=== PATIENT | female | born 1940 | race Caucasian/White ===

== ENCOUNTER 2020-06-04 10:57 | Inpatient (IN) ==
[2020-06-04] MEDS ORDERED: ALBUTEROL/IPRATROPIUM 3 ML NEB RESP TX STA (11:25)
[2020-06-04] MEDS ORDERED: FUROSEMIDE 100 MG/10 ML VIAL IV STA (11:25)
[2020-06-04 11:34] LABS: Basophils % 0.3 % (0.0-0.8); Eosinophils # 0.1 10*3/uL (0.0-0.87); Eosinophils % 0.4 % (0.00-10.9); Immature Granulocytes % 0.7 %; Immature Granulocytes Absolute 0.09 #; Lymphocytes % 7.6 % (21.3-54.2); Mean Corpuscular HGB Conc 30.2 GM/DL (32-36); Mean Corpuscular Volume 94.9 FL (87-102); Mean Platelet Volume 9.1 FL (9.6-12.0); Platelet Count 239 T/CUMM (130-400); Red Blood Count 4.53 MC/CUMM (3.8-5.5); Red Cell Distribution Width 13.2 % (9.3-17.3); White Blood Count 12.8 T/CUMM (4-12)
[2020-06-04 12:04] LABS: Bacteria,Urine Occasional /HPF (Few); Bilirubin,Urine Negative (Negative); Blood, Urine Small mg/dL (Negative); Glucose,Urine (UA) Negative (Negative); Hyaline Casts,Urine 15 /LPF (0-3); Ketones,Urine Negative (Negative); Mucus,Urine Occasional /LPF (Occasional); Nitrite,Urine Negative (Negative); Protein,Urine 100 MG/DL; RBC,Urine 2 /HPF (0-4); Urine Appearance CLEAR (Clear); Urine Color Yellow (Yellow); Urine Specific Gravity 1.012 (1.001-1.035); Urine Urobilinogen < 2.0 EU/DL (0.2-1.0); WBC,Urine <1 /HPF (0-6)
[2020-06-04 12:38] LABS: Albumin 3.3 G/DL (3.4-5.0); Bilirubin,Total 0.4 MG/DL (0.2-1.0); Calcium 9.2 MG/DL (8.5-10.1); Osmolality,Calculated 281.1 MOS/KG (273-304); Potassium 4.2 MMOL/L (3.5-5.1); Total Protein 7.3 G/DL (6.4-8.2)
[2020-06-04] MEDS ORDERED: AZITHROMYCIN INJ 500 MG in SODIUM CHLORIDE 0.9% 250 ML IV STA (14:47)
[2020-06-04] MEDS ORDERED: cefTRIAXone 1,000 MG in SODIUM CHLORIDE 0.9% 100 ML IV STA (14:47)
[2020-06-04] MEDS ORDERED: DOCUSATE SODIUM 100 MG CAPSULE PO PRN (16:22)
[2020-06-04] MEDS ORDERED: GLUCAGON 1 MG VIAL IM PRN ×2 (16:22)
[2020-06-04] MEDS ORDERED: hydrALAZINE 20 MG/1 ML VIAL IV PRN (16:22)
[2020-06-04] MEDS ORDERED: ACETAMINOPHEN 325 MG TABLET PO PRN (16:22)
[2020-06-04] MEDS ORDERED: DEXTROSE 50% 25 GM/50 ML VIAL IV PRN ×2 (16:22)
[2020-06-04] MEDS ORDERED: ONDANSETRON 4 MG/2 ML VIAL IV PRN (16:22)
[2020-06-04] MEDS ORDERED: guaiFENesin 200 MG/10 ML UDCUP PO PRN (16:50)
[2020-06-04] MEDS ORDERED: SODIUM CHLORIDE 0.9% 1,000 ML IV STA (17:36)
[2020-06-04] MEDS ORDERED: POLYVINYL ALCOHOL 1.4% OPH SOLN 15 ML BOTTLE BOTH EYES PRN (18:00)
[2020-06-04] MEDS: INSULIN LISPRO 100 UNIT/ML SUBCUT SCH ×2 (18:39→21:24)
[2020-06-04] MEDS: SODIUM CHLORIDE 0.9% 1,000 ML IV SCH (19:23)
[2020-06-04] MEDS: PIPERACILLIN/TAZOBACTAM 3,375 MG in SODIUM CHLORIDE 0.9% 100 ML IV SCH (19:24)
[2020-06-04] MEDS: ENOXAPARIN 150 MG/ML SYRINGE SUBCUT SCH (19:24)
[2020-06-04] MEDS: ALBUTEROL/IPRATROPIUM 3 ML NEB RESP TX SCH (19:40)
[2020-06-04] MEDS ORDERED: hydrOXYzine HCL 25 MG TABLET PO SCH (21:00)
[2020-06-04] MEDS: carvediloL 3.125 MG TABLET PO SCH (21:20)
[2020-06-04] MEDS: rOPINIRole 0.25 MG TABLET PO SCH (21:20)
[2020-06-04] MEDS: PREGABALIN 50 MG CAPSULE PO SCH (21:20)
[2020-06-04] MEDS: methylPREDNISolone SOD SUC 40 MG/1 ML VIAL IV SCH (21:21)
[2020-06-04] MEDS: FLUTICASONE/SALMETEROL 100-50 DISKUS 14 DOSE INH SCH (21:27)
[2020-06-04] MEDS: MELATONIN 3 MG TABLET PO SCH (21:27)
[2020-06-05] MEDS: VANCOMYCIN INJ 2,000 MG in SODIUM CHLORIDE 0.9% 500 ML IV SCH (01:11)
[2020-06-05] MEDS: ALBUTEROL/IPRATROPIUM 3 ML NEB RESP TX SCH ×4 (02:10→19:40)
[2020-06-05] MEDS: PIPERACILLIN/TAZOBACTAM 3,375 MG in SODIUM CHLORIDE 0.9% 100 ML IV SCH ×3 (05:26→20:11)
[2020-06-05] MEDS: ENOXAPARIN 150 MG/ML SYRINGE SUBCUT SCH ×2 (05:26→17:13)
[2020-06-05 06:40] LABS: Basophils % 0.2 % (0.0-0.8); Hematocrit 40.3 VOL% (35.7-47.0); Hemoglobin 12.3 GM/DL (12.0-16.0); Immature Granulocytes % 0.6 %; Lymphocytes # 1.1 10*3/uL (1.4-4.0); Lymphocytes % 6.8 % (21.3-54.2); Mean Corpuscular HGB Conc 30.5 GM/DL (32-36); Mean Corpuscular Volume 93.1 FL (87-102); Mean Platelet Volume 9.4 FL (9.6-12.0); Neutrophils % 89.4 % (38.7-73.9); Platelet Count 203 T/CUMM (130-400); Red Blood Count 4.33 MC/CUMM (3.8-5.5); Red Cell Distribution Width 13.5 % (9.3-17.3); White Blood Count 16.1 T/CUMM (4-12)
[2020-06-05 06:53] LABS: Calcium 9.3 MG/DL (8.5-10.1); Osmolality,Calculated 289.5 MOS/KG (273-304); Potassium 4.1 MMOL/L (3.5-5.1)
[2020-06-05 07:06] LABS: Albumin 2.9 G/DL (3.4-5.0); Bilirubin,Total 0.8 MG/DL (0.2-1.0); Calcium 9.1 MG/DL (8.5-10.1); Osmolality,Calculated 289.5 MOS/KG (273-304); Risk Ratio 3.11; Thyroid Stimulating Hormone 0.463 uIU/ml (0.358-3.74); Total Protein 7.3 G/DL (6.4-8.2); VLDL CHOLESTEROL 14.8 MG/DL
[2020-06-05] MEDS ORDERED: FUROSEMIDE 40 MG TABLET PO SCH (09:00)
[2020-06-05] MEDS ORDERED: PANTOPRAZOLE 40 MG TABLET PO SCH (09:00)
[2020-06-05] MEDS: FLUTICASONE/SALMETEROL 100-50 DISKUS 14 DOSE INH SCH ×2 (09:31→20:11)
[2020-06-05] MEDS: methylPREDNISolone SOD SUC 40 MG/1 ML VIAL IV SCH ×2 (09:33→20:11)
[2020-06-05] MEDS: LACTULOSE 20 GM/30 ML UDCUP PO SCH (09:34)
[2020-06-05] MEDS: POTASSIUM CHLORIDE 20 MEQ/15 ML UDCUP PO SCH (09:34)
[2020-06-05] MEDS: EZETIMIBE 10 MG TABLET PO SCH (09:35)
[2020-06-05] MEDS: ASPIRIN EC 325 MG TABLET PO SCH (09:35)
[2020-06-05] MEDS: DULoxetine 30 MG CAPSULE PO SCH (09:35)
[2020-06-05] MEDS: PREGABALIN 50 MG CAPSULE PO SCH ×3 (09:35→22:04)
[2020-06-05] MEDS: PANTOPRAZOLE 40 MG TABLET PO SCH (09:35)
[2020-06-05] MEDS: lisinopriL 10 MG TABLET PO SCH (09:35)
[2020-06-05] MEDS: carvediloL 3.125 MG TABLET PO SCH ×2 (09:35→22:04)
[2020-06-05] MEDS: INSULIN LISPRO 100 UNIT/ML SUBCUT SCH ×4 (09:37→22:04)
[2020-06-05 10:59] LABS: ABG Base Excess 11.3 MMOL/L (-2.5-2.5); ABG HCO3 38.3 MMOL/L (20-26); ABG Oxygen Saturation 95.6 % (95-100); ABG PCO2 61.9 MM HG (35-48); ABG PH 7.409 (7.35-7.45); ABG PO2 77.4 MM HG (80-95); ABG TCO2 40.2 MMOL/L (23-27)
[2020-06-05] MEDS: SODIUM CHLORIDE 0.9% 1,000 ML IV SCH (13:10)
[2020-06-05] MEDS ORDERED: AZITHROMYCIN INJ 500 MG in SODIUM CHLORIDE 0.9% 250 ML IV SCH (15:00)
[2020-06-05] MEDS ORDERED: cefTRIAXone 1,000 MG in SODIUM CHLORIDE 0.9% 100 ML IV SCH (16:00)
[2020-06-05] MEDS: MELATONIN 3 MG TABLET PO SCH (22:04)
[2020-06-05] MEDS: rOPINIRole 0.25 MG TABLET PO SCH (22:05)
[2020-06-06] MEDS: ALBUTEROL/IPRATROPIUM 3 ML NEB RESP TX SCH ×4 (00:10→19:09)
[2020-06-06] MEDS: SODIUM CHLORIDE 0.9% 1,000 ML IV SCH ×2 (00:26→12:11)
[2020-06-06] MEDS: VANCOMYCIN INJ 2,000 MG in SODIUM CHLORIDE 0.9% 500 ML IV SCH (02:45)
[2020-06-06] MEDS: PIPERACILLIN/TAZOBACTAM 3,375 MG in SODIUM CHLORIDE 0.9% 100 ML IV SCH ×3 (05:42→20:12)
[2020-06-06] MEDS: ENOXAPARIN 150 MG/ML SYRINGE SUBCUT SCH (05:42)
[2020-06-06 06:44] LABS: Basophils % 0.2 % (0.0-0.8); Hematocrit 40.7 VOL% (35.7-47.0); Hemoglobin 12.5 GM/DL (12.0-16.0); Immature Granulocytes % 0.9 %; Immature Granulocytes Absolute 0.11 #; Lymphocytes # 0.9 10*3/uL (1.4-4.0); Lymphocytes % 6.6 % (21.3-54.2); Mean Corpuscular HGB Conc 30.7 GM/DL (32-36); Mean Corpuscular Volume 91.5 FL (87-102); Mean Platelet Volume 9.4 FL (9.6-12.0); Monocytes % 5.9 % (1.7-12.7); Neutrophils % 86.4 % (38.7-73.9); Platelet Count 210 T/CUMM (130-400); Red Blood Count 4.45 MC/CUMM (3.8-5.5); Red Cell Distribution Width 13.6 % (9.3-17.3); White Blood Count 12.8 T/CUMM (4-12)
[2020-06-06 07:01] LABS: Calcium 9.5 MG/DL (8.5-10.1); Osmolality,Calculated 297.1 MOS/KG (273-304); Potassium 3.5 MMOL/L (3.5-5.1)
[2020-06-06] MEDS: INSULIN LISPRO 100 UNIT/ML SUBCUT SCH ×4 (07:11→20:35)
[2020-06-06] MEDS ORDERED: LABETALOL 20 MG/4 ML SYRINGE IV ONE (07:44)
[2020-06-06 08:56] LABS: Troponin I 0.273 NG/ML (0.00-0.045)
[2020-06-06] MEDS: FLUTICASONE/SALMETEROL 100-50 DISKUS 14 DOSE INH SCH ×2 (09:30→20:13)
[2020-06-06] MEDS: methylPREDNISolone SOD SUC 40 MG/1 ML VIAL IV SCH ×2 (09:32→20:14)
[2020-06-06] MEDS: ASPIRIN EC 325 MG TABLET PO SCH (10:09)
[2020-06-06] MEDS: LACTULOSE 20 GM/30 ML UDCUP PO SCH (10:10)
[2020-06-06] MEDS: carvediloL 3.125 MG TABLET PO SCH ×2 (10:10→20:13)
[2020-06-06] MEDS: DULoxetine 30 MG CAPSULE PO SCH (10:10)
[2020-06-06] MEDS: POTASSIUM CHLORIDE 20 MEQ/15 ML UDCUP PO SCH (10:11)
[2020-06-06] MEDS: lisinopriL 10 MG TABLET PO SCH (10:11)
[2020-06-06] MEDS: PREGABALIN 50 MG CAPSULE PO SCH ×3 (10:11→20:13)
[2020-06-06] MEDS: PANTOPRAZOLE 40 MG TABLET PO SCH (10:12)
[2020-06-06] MEDS: EZETIMIBE 10 MG TABLET PO SCH (10:13)
[2020-06-06] MEDS: LABETALOL 20 MG/4 ML SYRINGE IV PRN (15:57)
[2020-06-06] MEDS: MELATONIN 3 MG TABLET PO SCH (20:13)
[2020-06-06] MEDS: rOPINIRole 0.25 MG TABLET PO SCH (20:13)
[2020-06-07] MEDS: ALBUTEROL/IPRATROPIUM 3 ML NEB RESP TX SCH ×3 (00:02→16:50)
[2020-06-07] MEDS: VANCOMYCIN INJ 2,000 MG in SODIUM CHLORIDE 0.9% 500 ML IV SCH (01:10)
[2020-06-07] MEDS: PIPERACILLIN/TAZOBACTAM 3,375 MG in SODIUM CHLORIDE 0.9% 100 ML IV SCH ×2 (05:10→15:31)
[2020-06-07] MEDS: LABETALOL 20 MG/4 ML SYRINGE IV PRN (05:29)
[2020-06-07 05:41] LABS: Basophils % 0.1 % (0.0-0.8); Hematocrit 38.5 VOL% (35.7-47.0); Hemoglobin 12.2 GM/DL (12.0-16.0); Immature Granulocytes % 0.9 %; Lymphocytes # 0.8 10*3/uL (1.4-4.0); Lymphocytes % 7.8 % (21.3-54.2); Mean Corpuscular HGB Conc 31.7 GM/DL (32-36); Mean Corpuscular Volume 91.4 FL (87-102); Mean Platelet Volume 9.3 FL (9.6-12.0); Monocytes % 6.3 % (1.7-12.7); Neutrophils % 84.9 % (38.7-73.9); Platelet Count 207 T/CUMM (130-400); Red Blood Count 4.21 MC/CUMM (3.8-5.5); Red Cell Distribution Width 13.9 % (9.3-17.3); White Blood Count 10.7 T/CUMM (4-12)
[2020-06-07 05:55] LABS: Calcium 9.3 MG/DL (8.5-10.1); Potassium 3.5 MMOL/L (3.5-5.1)
[2020-06-07] MEDS ORDERED: ENOXAPARIN 40 MG/0.4 ML SYRINGE SUBCUT SCH (09:00)
[2020-06-07] MEDS: LACTULOSE 20 GM/30 ML UDCUP PO SCH (10:18)
[2020-06-07] MEDS: EZETIMIBE 10 MG TABLET PO SCH (10:19)
[2020-06-07] MEDS: ASPIRIN EC 325 MG TABLET PO SCH (10:19)
[2020-06-07] MEDS: PANTOPRAZOLE 40 MG TABLET PO SCH (10:20)
[2020-06-07] MEDS: lisinopriL 10 MG TABLET PO SCH (10:20)
[2020-06-07] MEDS: PREGABALIN 50 MG CAPSULE PO SCH ×2 (10:20→15:30)
[2020-06-07] MEDS: carvediloL 3.125 MG TABLET PO SCH (10:20)
[2020-06-07] MEDS: INSULIN LISPRO 100 UNIT/ML SUBCUT SCH ×3 (10:23→15:53)
[2020-06-07] MEDS: methylPREDNISolone SOD SUC 40 MG/1 ML VIAL IV SCH (10:24)
[2020-06-07] MEDS: DULoxetine 30 MG CAPSULE PO SCH (10:28)
[2020-06-07] MEDS: POTASSIUM CHLORIDE 20 MEQ/15 ML UDCUP PO SCH (10:29)
[2020-06-07] MEDS: FLUTICASONE/SALMETEROL 100-50 DISKUS 14 DOSE INH SCH (10:29)
[2020-06-07 16:34] VITALS: BP 177/92
[2020-06-07] MEDS ORDERED: carvediloL 6.25 MG TABLET PO SCH (21:00)
== END 2020-06-07 17:02 | DRG 177 ==
LOC: N.ED 10:57 → N.EDINP 16:22 → N.3E 17:35
PROVIDERS: ADMIT Internal Medicine; ATTEND Internal Medicine

== ENCOUNTER 2020-06-10 19:11 | Inpatient (IN) ==
[2020-06-10] MEDS ORDERED: SODIUM CHLORIDE 0.9% 1,000 ML IV STA (19:59)
[2020-06-10 20:15] LABS: Basophils % 0.3 % (0.0-0.8); Lymphocytes % 9.8 % (21.3-54.2); Neutrophils % 77.9 % (38.7-73.9)
[2020-06-10 20:34] LABS: Eosinophils # 0.3 10*3/uL (0.0-0.87); Eosinophils % 2.4 % (0.00-10.9); Hematocrit 42.3 VOL% (35.7-47.0); Immature Granulocytes % 1.9 %; Immature Granulocytes Absolute 0.23 #; Lymphocytes # 1.2 10*3/uL (1.4-4.0); Mean Corpuscular HGB Conc 29.6 GM/DL (32-36); Mean Corpuscular Volume 96.1 FL (87-102); Mean Platelet Volume 9.7 FL (9.6-12.0); Monocytes % 7.7 % (1.7-12.7); Platelet Count 199 T/CUMM (130-400); Red Cell Distribution Width 13.6 % (9.3-17.3); White Blood Count 11.9 T/CUMM (4-12)
[2020-06-10 20:35] LABS: Hemoglobin 12.5 GM/DL (12.0-16.0)
[2020-06-10 20:38] LABS: PT Patient Result 11.4 SECS (10.5-12.0); Partial Thromboplastin Time 24.2 SECS (23.9-33.8)
[2020-06-10 20:40] LABS: Alanine Aminotransferase 24 U/L (13-56); Albumin 2.6 G/DL (3.4-5.0); Alkaline Phosphatase 73 U/L (45-117); Aspartate Amino Transferase 35 U/L (0-37); Blood Urea Nitrogen 27 MG/DL (7-18); Carbon Dioxide 39 MMOL/L (21-32); Estimated Glom Filtration Rate 58 ML/MIN; Glucose 138 MG/DL (74-106); Osmolality,Calculated 283.5 MOS/KG (273-304); Potassium 4.2 MMOL/L (3.5-5.1); Sodium 139 MMOL/L (136-145); Total Protein 6.7 G/DL (6.4-8.2)
[2020-06-10 20:41] LABS: Troponin I 0.054 NG/ML (0.00-0.045)
[2020-06-11] MEDS ORDERED: ONDANSETRON 4 MG/2 ML VIAL IV PRN (00:26)
[2020-06-11] MEDS ORDERED: DEXTROSE 50% 25 GM/50 ML VIAL IV PRN (00:26)
[2020-06-11] MEDS ORDERED: GLUCAGON 1 MG VIAL IM PRN (00:26)
[2020-06-11] MEDS ORDERED: AZITHROMYCIN INJ 500 MG in SODIUM CHLORIDE 0.9% 250 ML IV SCH ×2 (00:30→10:30)
[2020-06-11] MEDS ORDERED: cefTRIAXone 1,000 MG in SODIUM CHLORIDE 0.9% 100 ML IV SCH (00:30)
[2020-06-11] MEDS: ALBUTEROL/IPRATROPIUM 3 ML NEB RESP TX SCH ×4 (01:15→19:57)
[2020-06-11] MEDS: ENOXAPARIN 40 MG/0.4 ML SYRINGE SUBCUT SCH (05:44)
[2020-06-11 07:04] LABS: Basophils % 0.2 % (0.0-0.8); Eosinophils # 0.2 10*3/uL (0.0-0.87); Eosinophils % 1.2 % (0.00-10.9); Hematocrit 39.2 VOL% (35.7-47.0); Hemoglobin 11.9 GM/DL (12.0-16.0); Immature Granulocytes % 1.2 %; Immature Granulocytes Absolute 0.19 #; Lymphocytes # 1.1 10*3/uL (1.4-4.0); Lymphocytes % 7.1 % (21.3-54.2); Mean Corpuscular HGB Conc 30.4 GM/DL (32-36); Mean Corpuscular Volume 94.7 FL (87-102); Mean Platelet Volume 9.5 FL (9.6-12.0); Monocytes % 6.4 % (1.7-12.7); Neutrophils % 83.9 % (38.7-73.9); Platelet Count 183 T/CUMM (130-400); Red Blood Count 4.14 MC/CUMM (3.8-5.5); Red Cell Distribution Width 13.6 % (9.3-17.3); White Blood Count 15.4 T/CUMM (4-12)
[2020-06-11 07:27] LABS: Alanine Aminotransferase 24 U/L (13-56); Albumin 2.7 G/DL (3.4-5.0); Alkaline Phosphatase 77 U/L (45-117); Aspartate Amino Transferase 25 U/L (0-37); Bilirubin,Total < 0.39 MG/DL (0.2-1.0); Blood Urea Nitrogen 20 MG/DL (7-18); Calcium 8.6 MG/DL (8.5-10.1); Estimated Glom Filtration Rate 85 ML/MIN; Glucose 135 MG/DL (74-106); Total Protein 6.7 G/DL (6.4-8.2)
[2020-06-11 07:32] LABS: Potassium 3.7 MMOL/L (3.5-5.1)
[2020-06-11] MEDS ORDERED: POLYVINYL ALCOHOL 1.4% OPH SOLN 15 ML BOTTLE BOTH EYES PRN (07:32)
[2020-06-11] MEDS ORDERED: guaiFENesin 200 MG/10 ML UDCUP PO PRN (07:32)
[2020-06-11 07:33] LABS: Osmolality,Calculated 281.5 MOS/KG (273-304); Sodium 139 MMOL/L (136-145)
[2020-06-11 07:35] LABS: Carbon Dioxide 38 MMOL/L (21-32)
[2020-06-11] MEDS: LACTULOSE 20 GM/30 ML UDCUP PO SCH (09:00)
[2020-06-11] MEDS: DULoxetine 30 MG CAPSULE PO SCH (09:00)
[2020-06-11] MEDS: PANTOPRAZOLE 40 MG TABLET PO SCH (09:00)
[2020-06-11] MEDS: ASPIRIN EC 325 MG TABLET PO SCH (09:00)
[2020-06-11] MEDS: EZETIMIBE 10 MG TABLET PO SCH (09:00)
[2020-06-11] MEDS: carvediloL 6.25 MG TABLET PO SCH ×2 (09:00→20:30)
[2020-06-11] MEDS: SODIUM CHLORIDE 0.9% 1,000 ML IV SCH (09:14)
[2020-06-11] MEDS ORDERED: MAGNESIUM SULF RIDER 4 GM/100 ML PREMIX IV PRN (10:21)
[2020-06-11] MEDS ORDERED: POTASSIUM CHLORIDE 20 MEQ TABLET PO PRN (10:21)
[2020-06-11] MEDS ORDERED: MAGNESIUM SULF RIDER 2 GM/50 ML PREMIX IV PRN (10:21)
[2020-06-11] MEDS: FUROSEMIDE 40 MG TABLET PO SCH (11:45)
[2020-06-11] MEDS: lisinopriL 10 MG TABLET PO SCH (11:45)
[2020-06-11] MEDS: LEVOFLOXACIN INJ 750 MG/150 ML PREMIX IV SCH (12:01)
[2020-06-11] MEDS: PREGABALIN 50 MG CAPSULE PO SCH ×2 (15:04→20:30)
[2020-06-11] MEDS: predniSONE 5 MG TABLET PO SCH (15:04)
[2020-06-11] MEDS: PIPERACILLIN/TAZOBACTAM 3,375 MG in SODIUM CHLORIDE 0.9% 100 ML IV SCH ×2 (15:04→20:28)
[2020-06-11] MEDS: rOPINIRole 0.25 MG TABLET PO SCH (20:29)
[2020-06-12] MEDS: ALBUTEROL/IPRATROPIUM 3 ML NEB RESP TX SCH ×4 (00:16→19:20)
[2020-06-12] MEDS: ENOXAPARIN 40 MG/0.4 ML SYRINGE SUBCUT SCH ×2 (00:57→11:24)
[2020-06-12] MEDS: SODIUM CHLORIDE 0.9% 1,000 ML IV SCH (00:57)
[2020-06-12] MEDS: PIPERACILLIN/TAZOBACTAM 3,375 MG in SODIUM CHLORIDE 0.9% 100 ML IV SCH ×3 (03:15→21:04)
[2020-06-12 05:30] LABS: Basophils % 0.5 % (0.0-0.8); Eosinophils # 0.2 10*3/uL (0.0-0.87); Eosinophils % 2.5 % (0.00-10.9); Hematocrit 39.8 VOL% (35.7-47.0); Hemoglobin 12.3 GM/DL (12.0-16.0); Immature Granulocytes % 1.4 %; Immature Granulocytes Absolute 0.12 #; Lymphocytes % 11.5 % (21.3-54.2); Mean Corpuscular HGB Conc 30.9 GM/DL (32-36); Mean Corpuscular Volume 93.2 FL (87-102); Mean Platelet Volume 10.5 FL (9.6-12.0); Monocytes % 9.9 % (1.7-12.7); Neutrophils % 74.2 % (38.7-73.9); Red Blood Count 4.27 MC/CUMM (3.8-5.5); Red Cell Distribution Width 13.6 % (9.3-17.3)
[2020-06-12 05:31] LABS: Platelet Count 143 T/CUMM (130-400); White Blood Count 8.4 T/CUMM (4-12)
[2020-06-12 05:46] LABS: Calcium 8.7 MG/DL (8.5-10.1); Osmolality,Calculated 274.7 MOS/KG (273-304); Potassium 4.4 MMOL/L (3.5-5.1)
[2020-06-12] MEDS: hydrALAZINE 20 MG/1 ML VIAL IV PRN (06:08)
[2020-06-12] MEDS: DULoxetine 30 MG CAPSULE PO SCH ×2 (07:55→08:52)
[2020-06-12] MEDS: predniSONE 5 MG TABLET PO SCH ×2 (07:55→08:53)
[2020-06-12] MEDS: EZETIMIBE 10 MG TABLET PO SCH ×2 (07:55→08:53)
[2020-06-12] MEDS: ASPIRIN EC 325 MG TABLET PO SCH ×2 (07:56→08:52)
[2020-06-12] MEDS: FUROSEMIDE 40 MG TABLET PO SCH (07:56)
[2020-06-12] MEDS: carvediloL 6.25 MG TABLET PO SCH (07:56)
[2020-06-12] MEDS: lisinopriL 10 MG TABLET PO SCH ×2 (07:56→08:53)
[2020-06-12] MEDS: FUROSEMIDE 40 MG/4 ML VIAL IV SCH (08:52)
[2020-06-12] MEDS: carvediloL 12.5 MG TABLET PO SCH ×2 (08:52→16:36)
[2020-06-12] MEDS: LACTULOSE 20 GM/30 ML UDCUP PO SCH (11:21)
[2020-06-12] MEDS: PREGABALIN 50 MG CAPSULE PO SCH ×3 (11:22→21:03)
[2020-06-12] MEDS: PANTOPRAZOLE 40 MG TABLET PO SCH (11:25)
[2020-06-12] MEDS: LEVOFLOXACIN INJ 750 MG/150 ML PREMIX IV SCH (14:48)
[2020-06-12] MEDS: ACETAMINOPHEN 325 MG TABLET PO PRN (21:03)
[2020-06-12] MEDS: rOPINIRole 0.25 MG TABLET PO SCH (21:03)
[2020-06-13] MEDS: ALBUTEROL/IPRATROPIUM 3 ML NEB RESP TX SCH ×4 (01:32→17:43)
[2020-06-13 05:36] LABS: Calcium 8.8 MG/DL (8.5-10.1); Osmolality,Calculated 271.8 MOS/KG (273-304); Potassium 3.3 MMOL/L (3.5-5.1)
[2020-06-13] MEDS: PIPERACILLIN/TAZOBACTAM 3,375 MG in SODIUM CHLORIDE 0.9% 100 ML IV SCH (06:01)
[2020-06-13] MEDS ORDERED: MAGNESIUM SULF RIDER 2 GM/50 ML PREMIX IV ONE (07:45)
[2020-06-13] MEDS: ASPIRIN EC 325 MG TABLET PO SCH (09:27)
[2020-06-13] MEDS: ENOXAPARIN 40 MG/0.4 ML SYRINGE SUBCUT SCH (09:27)
[2020-06-13] MEDS: DULoxetine 30 MG CAPSULE PO SCH (09:27)
[2020-06-13] MEDS: FUROSEMIDE 40 MG/4 ML VIAL IV SCH (09:27)
[2020-06-13] MEDS: PREGABALIN 50 MG CAPSULE PO SCH ×3 (09:28→20:24)
[2020-06-13] MEDS: lisinopriL 10 MG TABLET PO SCH (09:28)
[2020-06-13] MEDS: EZETIMIBE 10 MG TABLET PO SCH (09:28)
[2020-06-13] MEDS: LACTULOSE 20 GM/30 ML UDCUP PO SCH (09:28)
[2020-06-13] MEDS: predniSONE 5 MG TABLET PO SCH (09:28)
[2020-06-13] MEDS: PANTOPRAZOLE 40 MG TABLET PO SCH (09:28)
[2020-06-13] MEDS: carvediloL 12.5 MG TABLET PO SCH ×2 (09:28→16:00)
[2020-06-13] MEDS: POTASSIUM CHLORIDE 20 MEQ/15 ML UDCUP PO SCH (09:29)
[2020-06-13] MEDS ORDERED: LEVOFLOXACIN 750 MG TABLET PO SCH (12:00)
[2020-06-13] MEDS: AZITHROMYCIN 250 MG TABLET PO SCH (12:09)
[2020-06-13] MEDS: hydrALAZINE 20 MG/1 ML VIAL IV PRN (16:01)
[2020-06-13] MEDS: ZINC OXIDE PASTE 113 GM TUBE TOP SCH ×2 (16:01→20:25)
[2020-06-13] MEDS: rOPINIRole 0.25 MG TABLET PO SCH (20:24)
[2020-06-13] MEDS: ACETAMINOPHEN 325 MG TABLET PO PRN (20:25)
[2020-06-14] MEDS: ALBUTEROL/IPRATROPIUM 3 ML NEB RESP TX SCH ×4 (01:14→19:29)
[2020-06-14 07:29] LABS: Calcium 9.3 MG/DL (8.5-10.1); Osmolality,Calculated 269.1 MOS/KG (273-304); Potassium 3.9 MMOL/L (3.5-5.1)
[2020-06-14 07:30] LABS: Basophils % 0.7 % (0.0-0.8); Eosinophils # 0.2 10*3/uL (0.0-0.87); Eosinophils % 3.2 % (0.00-10.9); Immature Granulocytes % 1.7 %; Lymphocytes % 17.1 % (21.3-54.2); Mean Corpuscular HGB Conc 30.5 GM/DL (32-36); Mean Corpuscular Volume 93.8 FL (87-102); Mean Platelet Volume 10.1 FL (9.6-12.0); Monocytes % 13.7 % (1.7-12.7); Neutrophils % 63.6 % (38.7-73.9); Platelet Count 217 T/CUMM (130-400); Red Blood Count 4.16 MC/CUMM (3.8-5.5); Red Cell Distribution Width 13.3 % (9.3-17.3); White Blood Count 5.9 T/CUMM (4-12)
[2020-06-14 07:33] LABS: Hemoglobin 11.9 GM/DL (12.0-16.0)
[2020-06-14] MEDS: carvediloL 12.5 MG TABLET PO SCH ×2 (08:47→16:07)
[2020-06-14] MEDS: DULoxetine 30 MG CAPSULE PO SCH (08:47)
[2020-06-14] MEDS: ASPIRIN EC 325 MG TABLET PO SCH (08:47)
[2020-06-14] MEDS: EZETIMIBE 10 MG TABLET PO SCH (08:47)
[2020-06-14] MEDS: AZITHROMYCIN 250 MG TABLET PO SCH (08:48)
[2020-06-14] MEDS: PANTOPRAZOLE 40 MG TABLET PO SCH (08:48)
[2020-06-14] MEDS: PREGABALIN 50 MG CAPSULE PO SCH ×3 (08:48→21:07)
[2020-06-14] MEDS: lisinopriL 10 MG TABLET PO SCH (08:48)
[2020-06-14] MEDS: POTASSIUM CHLORIDE 20 MEQ/15 ML UDCUP PO SCH (08:48)
[2020-06-14] MEDS: LACTULOSE 20 GM/30 ML UDCUP PO SCH (08:48)
[2020-06-14] MEDS: predniSONE 5 MG TABLET PO SCH (08:48)
[2020-06-14] MEDS: ENOXAPARIN 40 MG/0.4 ML SYRINGE SUBCUT SCH (08:49)
[2020-06-14] MEDS: FUROSEMIDE 40 MG/4 ML VIAL IV SCH (08:49)
[2020-06-14] MEDS: ZINC OXIDE PASTE 113 GM TUBE TOP SCH (10:21)
[2020-06-14] MEDS ORDERED: traMADol 50 MG TABLET PO PRN (10:59)
[2020-06-14] MEDS: MEROPENEM 500 MG in SODIUM CHLORIDE 0.9% 100 ML IV SCH (19:06)
[2020-06-14] MEDS: VANCOMYCIN INJ 1,750 MG in SODIUM CHLORIDE 0.9% 500 ML IV SCH (21:06)
[2020-06-14] MEDS: rOPINIRole 0.25 MG TABLET PO SCH (21:07)
[2020-06-15] MEDS: ACETYLCYSTEINE 20% 800 MG/4 ML VIAL RESP TX SCH ×3 (00:06→14:51)
[2020-06-15] MEDS: ALBUTEROL/IPRATROPIUM 3 ML NEB RESP TX SCH ×4 (00:06→19:10)
[2020-06-15] MEDS: MEROPENEM 500 MG in SODIUM CHLORIDE 0.9% 100 ML IV SCH ×5 (01:09→23:30)
[2020-06-15] MEDS: ZINC OXIDE PASTE 113 GM TUBE TOP SCH ×3 (01:11→21:28)
[2020-06-15 05:23] LABS: Basophils % 0.6 % (0.0-0.8); Eosinophils # 0.2 10*3/uL (0.0-0.87); Eosinophils % 2.9 % (0.00-10.9); Hemoglobin 11.6 GM/DL (12.0-16.0); Immature Granulocytes % 1.1 %; Immature Granulocytes Absolute 0.07 #; Lymphocytes # 1.2 10*3/uL (1.4-4.0); Lymphocytes % 18.1 % (21.3-54.2); Mean Corpuscular HGB Conc 30.5 GM/DL (32-36); Mean Corpuscular Volume 93.8 FL (87-102); Mean Platelet Volume 9.7 FL (9.6-12.0); Neutrophils % 65.3 % (38.7-73.9); Platelet Count 208 T/CUMM (130-400); Red Blood Count 4.05 MC/CUMM (3.8-5.5); Red Cell Distribution Width 13.4 % (9.3-17.3); White Blood Count 6.6 T/CUMM (4-12)
[2020-06-15 05:45] LABS: Calcium 8.9 MG/DL (8.5-10.1)
[2020-06-15 05:47] LABS: Osmolality,Calculated 271.1 MOS/KG (273-304); Potassium 3.6 MMOL/L (3.5-5.1)
[2020-06-15] MEDS: carvediloL 12.5 MG TABLET PO SCH ×2 (08:32→16:35)
[2020-06-15] MEDS: FUROSEMIDE 40 MG/4 ML VIAL IV SCH (08:32)
[2020-06-15] MEDS: ENOXAPARIN 40 MG/0.4 ML SYRINGE SUBCUT SCH (08:32)
[2020-06-15] MEDS: POTASSIUM CHLORIDE 20 MEQ/15 ML UDCUP PO SCH (08:32)
[2020-06-15] MEDS: AZITHROMYCIN 250 MG TABLET PO SCH (08:32)
[2020-06-15] MEDS: DULoxetine 30 MG CAPSULE PO SCH (08:32)
[2020-06-15] MEDS: PREGABALIN 50 MG CAPSULE PO SCH ×3 (08:33→21:28)
[2020-06-15] MEDS: LACTULOSE 20 GM/30 ML UDCUP PO SCH (08:33)
[2020-06-15] MEDS: EZETIMIBE 10 MG TABLET PO SCH (08:33)
[2020-06-15] MEDS: PANTOPRAZOLE 40 MG TABLET PO SCH (08:33)
[2020-06-15] MEDS: ASPIRIN EC 325 MG TABLET PO SCH (08:33)
[2020-06-15] MEDS: predniSONE 5 MG TABLET PO SCH (08:33)
[2020-06-15] MEDS: lisinopriL 10 MG TABLET PO SCH (08:33)
[2020-06-15] MEDS: VANCOMYCIN INJ 1,750 MG in SODIUM CHLORIDE 0.9% 500 ML IV SCH ×2 (10:13→21:29)
[2020-06-15] MEDS: rOPINIRole 0.25 MG TABLET PO SCH (21:28)
[2020-06-16] MEDS: ACETYLCYSTEINE 20% 800 MG/4 ML VIAL RESP TX SCH ×3 (00:12→13:28)
[2020-06-16] MEDS: ALBUTEROL/IPRATROPIUM 3 ML NEB RESP TX SCH ×4 (00:12→19:26)
[2020-06-16] MEDS: MEROPENEM 500 MG in SODIUM CHLORIDE 0.9% 100 ML IV SCH ×4 (05:40→23:10)
[2020-06-16 06:47] LABS: Basophils % 0.6 % (0.0-0.8); Eosinophils # 0.2 10*3/uL (0.0-0.87); Eosinophils % 3.1 % (0.00-10.9); Hematocrit 39.7 VOL% (35.7-47.0); Hemoglobin 11.8 GM/DL (12.0-16.0); Immature Granulocytes % 1.4 %; Lymphocytes % 14.3 % (21.3-54.2); Mean Corpuscular HGB Conc 29.7 GM/DL (32-36); Mean Corpuscular Volume 95.2 FL (87-102); Mean Platelet Volume 9.3 FL (9.6-12.0); Monocytes % 9.6 % (1.7-12.7); Platelet Count 198 T/CUMM (130-400); Red Blood Count 4.17 MC/CUMM (3.8-5.5); Red Cell Distribution Width 13.5 % (9.3-17.3); White Blood Count 7.2 T/CUMM (4-12)
[2020-06-16 06:49] LABS: Albumin 2.6 G/DL (3.4-5.0); Bilirubin,Total 0.9 MG/DL (0.2-1.0); Potassium 3.8 MMOL/L (3.5-5.1); Total Protein 6.7 G/DL (6.4-8.2)
[2020-06-16] MEDS: AZITHROMYCIN 250 MG TABLET PO SCH (09:25)
[2020-06-16] MEDS: DULoxetine 30 MG CAPSULE PO SCH (09:25)
[2020-06-16] MEDS: PANTOPRAZOLE 40 MG TABLET PO SCH (09:25)
[2020-06-16] MEDS: ASPIRIN EC 325 MG TABLET PO SCH (09:25)
[2020-06-16] MEDS: EZETIMIBE 10 MG TABLET PO SCH (09:25)
[2020-06-16] MEDS: lisinopriL 10 MG TABLET PO SCH (09:26)
[2020-06-16] MEDS: ENOXAPARIN 40 MG/0.4 ML SYRINGE SUBCUT SCH (09:26)
[2020-06-16] MEDS: carvediloL 12.5 MG TABLET PO SCH ×2 (09:26→17:31)
[2020-06-16] MEDS: FUROSEMIDE 40 MG/4 ML VIAL IV SCH ×2 (09:26→15:15)
[2020-06-16] MEDS: LACTULOSE 20 GM/30 ML UDCUP PO SCH (09:26)
[2020-06-16] MEDS: PREGABALIN 50 MG CAPSULE PO SCH ×3 (09:26→20:34)
[2020-06-16] MEDS: POTASSIUM CHLORIDE 20 MEQ/15 ML UDCUP PO SCH (09:26)
[2020-06-16] MEDS: ZINC OXIDE PASTE 113 GM TUBE TOP SCH ×2 (09:27→20:34)
[2020-06-16] MEDS: VANCOMYCIN INJ 1,750 MG in SODIUM CHLORIDE 0.9% 500 ML IV SCH (10:39)
[2020-06-16] MEDS: rOPINIRole 0.25 MG TABLET PO SCH (20:34)
[2020-06-17] MEDS: ALBUTEROL/IPRATROPIUM 3 ML NEB RESP TX SCH ×4 (00:10→19:35)
[2020-06-17] MEDS: ACETYLCYSTEINE 20% 800 MG/4 ML VIAL RESP TX SCH ×4 (00:10→19:35)
[2020-06-17] MEDS: MEROPENEM 500 MG in SODIUM CHLORIDE 0.9% 100 ML IV SCH ×3 (05:04→21:08)
[2020-06-17 05:44] LABS: Calcium 8.8 MG/DL (8.5-10.1); Potassium 3.8 MMOL/L (3.5-5.1)
[2020-06-17 05:47] LABS: Basophils % 0.6 % (0.0-0.8); Eosinophils # 0.3 10*3/uL (0.0-0.87); Eosinophils % 4.3 % (0.00-10.9); Hematocrit 38.1 VOL% (35.7-47.0); Hemoglobin 11.5 GM/DL (12.0-16.0); Immature Granulocytes % 1.2 %; Immature Granulocytes Absolute 0.08 #; Lymphocytes # 1.5 10*3/uL (1.4-4.0); Lymphocytes % 21.4 % (21.3-54.2); Mean Corpuscular HGB Conc 30.2 GM/DL (32-36); Mean Corpuscular Volume 94.8 FL (87-102); Mean Platelet Volume 9.7 FL (9.6-12.0); Monocytes % 12.1 % (1.7-12.7); Neutrophils % 60.4 % (38.7-73.9); Platelet Count 208 T/CUMM (130-400); Red Blood Count 4.02 MC/CUMM (3.8-5.5); Red Cell Distribution Width 13.8 % (9.3-17.3)
[2020-06-17 05:55] LABS: Osmolality,Calculated 274.7 MOS/KG (273-304)
[2020-06-17] MEDS: PANTOPRAZOLE 40 MG TABLET PO SCH (08:16)
[2020-06-17] MEDS: ENOXAPARIN 40 MG/0.4 ML SYRINGE SUBCUT SCH (08:16)
[2020-06-17] MEDS: POTASSIUM CHLORIDE 20 MEQ/15 ML UDCUP PO SCH (08:16)
[2020-06-17] MEDS: LACTULOSE 20 GM/30 ML UDCUP PO SCH (08:16)
[2020-06-17] MEDS: ASPIRIN EC 325 MG TABLET PO SCH (08:17)
[2020-06-17] MEDS: lisinopriL 10 MG TABLET PO SCH (08:17)
[2020-06-17] MEDS: EZETIMIBE 10 MG TABLET PO SCH (08:17)
[2020-06-17] MEDS: ZINC OXIDE PASTE 113 GM TUBE TOP SCH ×2 (08:17→21:08)
[2020-06-17] MEDS: DULoxetine 30 MG CAPSULE PO SCH (08:17)
[2020-06-17] MEDS: AZITHROMYCIN 250 MG TABLET PO SCH (08:17)
[2020-06-17] MEDS: carvediloL 12.5 MG TABLET PO SCH ×2 (08:17→16:29)
[2020-06-17] MEDS: PREGABALIN 50 MG CAPSULE PO SCH ×3 (08:17→21:08)
[2020-06-17] MEDS: FUROSEMIDE 40 MG/4 ML VIAL IV SCH (08:18)
[2020-06-17] MEDS: rOPINIRole 0.25 MG TABLET PO SCH (21:09)
[2020-06-18] MEDS: ALBUTEROL/IPRATROPIUM 3 ML NEB RESP TX SCH ×4 (00:12→19:15)
[2020-06-18] MEDS: MEROPENEM 500 MG in SODIUM CHLORIDE 0.9% 100 ML IV SCH ×4 (04:01→20:29)
[2020-06-18 05:25] LABS: Basophils # 0.1 10*3/uL (0.0-0.2); Basophils % 0.8 % (0.0-0.8); Eosinophils # 0.3 10*3/uL (0.0-0.87); Eosinophils % 4.8 % (0.00-10.9); Hematocrit 36.5 VOL% (35.7-47.0); Hemoglobin 11.3 GM/DL (12.0-16.0); Immature Granulocytes % 1.2 %; Immature Granulocytes Absolute 0.08 #; Lymphocytes # 1.4 10*3/uL (1.4-4.0); Mean Corpuscular Volume 91.7 FL (87-102); Mean Platelet Volume 9.7 FL (9.6-12.0); Monocytes % 12.5 % (1.7-12.7); Neutrophils % 59.7 % (38.7-73.9); Platelet Count 209 T/CUMM (130-400); Red Blood Count 3.98 MC/CUMM (3.8-5.5); White Blood Count 6.6 T/CUMM (4-12)
[2020-06-18 05:55] LABS: Calcium 9.3 MG/DL (8.5-10.1); Osmolality,Calculated 270.1 MOS/KG (273-304); Potassium 3.8 MMOL/L (3.5-5.1)
[2020-06-18] MEDS ORDERED: PROMETHAZINE 25 MG/1 ML VIAL IM ONE (07:00)
[2020-06-18] MEDS ORDERED: MEPERIDINE 50 MG/1 ML VIAL IM ONE (07:00)
[2020-06-18] MEDS: ACETYLCYSTEINE 20% 800 MG/4 ML VIAL RESP TX SCH ×3 (07:08→19:15)
[2020-06-18] MEDS ORDERED: LIDOCAINE 2% 20 ML VIAL RESP TX ONE (07:30)
[2020-06-18] MEDS ORDERED: LIDOCAINE 1% 20 ML VIAL MISC INJ ONE (07:30)
[2020-06-18] MEDS ORDERED: LIDOCAINE 2% VISCOUS 100 ML BOTTLE SWISH/SPIT ONE (07:30)
[2020-06-18] MEDS ORDERED: MIDAZOLAM 2 MG/2 ML VIAL IV ONE (07:30)
[2020-06-18] MEDS ORDERED: lisinopriL 10 MG TABLET PO SCH (09:00)
[2020-06-18] MEDS ORDERED: carvediloL 25 MG TABLET PO SCH (09:00)
[2020-06-18] MEDS ORDERED: lisinopriL 20 MG TABLET PO SCH (09:00)
[2020-06-18] MEDS: LACTULOSE 20 GM/30 ML UDCUP PO SCH (09:30)
[2020-06-18] MEDS: PANTOPRAZOLE 40 MG TABLET PO SCH (09:31)
[2020-06-18] MEDS: ASPIRIN EC 325 MG TABLET PO SCH (09:31)
[2020-06-18] MEDS: EZETIMIBE 10 MG TABLET PO SCH (09:31)
[2020-06-18] MEDS: PREGABALIN 50 MG CAPSULE PO SCH ×3 (09:31→20:29)
[2020-06-18] MEDS: DULoxetine 30 MG CAPSULE PO SCH (09:31)
[2020-06-18] MEDS: ZINC OXIDE PASTE 113 GM TUBE TOP SCH ×2 (09:32→20:39)
[2020-06-18] MEDS: POTASSIUM CHLORIDE 20 MEQ/15 ML UDCUP PO SCH (09:32)
[2020-06-18] MEDS: ENOXAPARIN 40 MG/0.4 ML SYRINGE SUBCUT SCH (09:33)
[2020-06-18] MEDS: FUROSEMIDE 40 MG/4 ML VIAL IV SCH (09:33)
[2020-06-18] MEDS: carvediloL 12.5 MG TABLET PO SCH (09:45)
[2020-06-18] MEDS: VANCOMYCIN INJ 1,750 MG in SODIUM CHLORIDE 0.9% 500 ML IV SCH (11:22)
[2020-06-18] MEDS ORDERED: SODIUM CHLORIDE 0.9% 500 ML IV ONE ×2 (11:56→13:28)
[2020-06-18] MEDS: rOPINIRole 0.25 MG TABLET PO SCH (20:29)
[2020-06-18] MEDS: POLYETHYLENE GLYCOL POWDER 17 GM PACK PO SCH (20:45)
[2020-06-19] MEDS: ALBUTEROL/IPRATROPIUM 3 ML NEB RESP TX SCH ×4 (03:01→19:22)
[2020-06-19] MEDS: MEROPENEM 500 MG in SODIUM CHLORIDE 0.9% 100 ML IV SCH ×4 (03:21→20:15)
[2020-06-19 05:59] LABS: Basophils % 0.6 % (0.0-0.8); Eosinophils # 0.4 10*3/uL (0.0-0.87); Eosinophils % 6.1 % (0.00-10.9); Hematocrit 36.9 VOL% (35.7-47.0); Immature Granulocytes % 1.6 %; Lymphocytes # 1.5 10*3/uL (1.4-4.0); Lymphocytes % 22.8 % (21.3-54.2); Mean Corpuscular HGB Conc 29.8 GM/DL (32-36); Mean Corpuscular Volume 94.4 FL (87-102); Mean Platelet Volume 9.7 FL (9.6-12.0); Monocytes % 11.2 % (1.7-12.7); Neutrophils % 57.7 % (38.7-73.9); Platelet Count 188 T/CUMM (130-400); Red Blood Count 3.91 MC/CUMM (3.8-5.5); Red Cell Distribution Width 14.5 % (9.3-17.3); White Blood Count 6.4 T/CUMM (4-12)
[2020-06-19 06:17] LABS: Calcium 9.2 MG/DL (8.5-10.1); Potassium 4.2 MMOL/L (3.5-5.1)
[2020-06-19] MEDS: ACETYLCYSTEINE 20% 800 MG/4 ML VIAL RESP TX SCH ×2 (06:55→12:50)
[2020-06-19] MEDS ORDERED: carvediloL 12.5 MG TABLET PO SCH ×2 (09:30→17:00)
[2020-06-19] MEDS: POLYETHYLENE GLYCOL POWDER 17 GM PACK PO SCH ×3 (09:47→20:15)
[2020-06-19] MEDS: ASPIRIN EC 325 MG TABLET PO SCH (09:47)
[2020-06-19] MEDS: LACTULOSE 20 GM/30 ML UDCUP PO SCH (09:47)
[2020-06-19] MEDS: POTASSIUM CHLORIDE 20 MEQ/15 ML UDCUP PO SCH (09:48)
[2020-06-19] MEDS: FUROSEMIDE 40 MG/4 ML VIAL IV SCH (09:48)
[2020-06-19] MEDS: PREGABALIN 50 MG CAPSULE PO SCH ×3 (09:48→20:15)
[2020-06-19] MEDS: ENOXAPARIN 40 MG/0.4 ML SYRINGE SUBCUT SCH (09:48)
[2020-06-19] MEDS: EZETIMIBE 10 MG TABLET PO SCH (09:49)
[2020-06-19] MEDS: ZINC OXIDE PASTE 113 GM TUBE TOP SCH ×2 (09:49→20:16)
[2020-06-19] MEDS: PANTOPRAZOLE 40 MG TABLET PO SCH (09:49)
[2020-06-19] MEDS: DULoxetine 30 MG CAPSULE PO SCH (09:49)
[2020-06-19] MEDS: VANCOMYCIN INJ 1,750 MG in SODIUM CHLORIDE 0.9% 500 ML IV SCH (14:09)
[2020-06-19] MEDS ORDERED: SODIUM CHLORIDE 0.9% 500 ML IV ONE (14:41)
[2020-06-19] MEDS: rOPINIRole 0.25 MG TABLET PO SCH (20:15)
[2020-06-20] MEDS: ALBUTEROL/IPRATROPIUM 3 ML NEB RESP TX SCH ×2 (00:25→07:05)
[2020-06-20] MEDS: ACETYLCYSTEINE 20% 800 MG/4 ML VIAL RESP TX SCH ×2 (00:25→07:05)
[2020-06-20] MEDS: MEROPENEM 500 MG in SODIUM CHLORIDE 0.9% 100 ML IV SCH ×3 (04:19→10:23)
[2020-06-20 05:19] LABS: Basophils % 0.5 % (0.0-0.8); Eosinophils # 0.4 10*3/uL (0.0-0.87); Eosinophils % 6.8 % (0.00-10.9); Hematocrit 35.6 VOL% (35.7-47.0); Hemoglobin 10.8 GM/DL (12.0-16.0); Immature Granulocytes % 1.4 %; Immature Granulocytes Absolute 0.08 #; Lymphocytes # 1.4 10*3/uL (1.4-4.0); Lymphocytes % 24.2 % (21.3-54.2); Mean Corpuscular HGB Conc 30.3 GM/DL (32-36); Mean Corpuscular Volume 93.9 FL (87-102); Mean Platelet Volume 9.8 FL (9.6-12.0); Monocytes % 12.5 % (1.7-12.7); Neutrophils % 54.6 % (38.7-73.9); Platelet Count 184 T/CUMM (130-400); Red Blood Count 3.79 MC/CUMM (3.8-5.5); Red Cell Distribution Width 14.5 % (9.3-17.3); White Blood Count 5.9 T/CUMM (4-12)
[2020-06-20 05:41] LABS: Calcium 9.2 MG/DL (8.5-10.1); Osmolality,Calculated 275.7 MOS/KG (273-304); Potassium 4.1 MMOL/L (3.5-5.1)
[2020-06-20] MEDS: DULoxetine 30 MG CAPSULE PO SCH (09:56)
[2020-06-20] MEDS: ENOXAPARIN 40 MG/0.4 ML SYRINGE SUBCUT SCH (09:57)
[2020-06-20] MEDS: PANTOPRAZOLE 40 MG TABLET PO SCH (09:57)
[2020-06-20] MEDS: EZETIMIBE 10 MG TABLET PO SCH (09:57)
[2020-06-20] MEDS: LACTULOSE 20 GM/30 ML UDCUP PO SCH (09:57)
[2020-06-20] MEDS: ASPIRIN EC 325 MG TABLET PO SCH (09:57)
[2020-06-20] MEDS: PREGABALIN 50 MG CAPSULE PO SCH (09:57)
[2020-06-20] MEDS: POTASSIUM CHLORIDE 20 MEQ/15 ML UDCUP PO SCH (09:57)
[2020-06-20] MEDS: POLYETHYLENE GLYCOL POWDER 17 GM PACK PO SCH (09:59)
[2020-06-20] MEDS: FUROSEMIDE 40 MG/4 ML VIAL IV SCH ×2 (09:59→10:22)
[2020-06-20] MEDS: ZINC OXIDE PASTE 113 GM TUBE TOP SCH (09:59)
[2020-06-20] MEDS ORDERED: SODIUM PHOSPHATE ENEMA 133 ML BOTTLE RECTAL ONE (11:00)
[2020-06-20] MEDS: VANCOMYCIN INJ 1,750 MG in SODIUM CHLORIDE 0.9% 500 ML IV SCH (11:11)
[2020-06-20 11:27] VITALS: BP 146/69
== END 2020-06-20 14:38 | DRG 193 ==
LOC: EDBD → EDUNIT# → N.ED 19:11 → SUATTDRO 06-11 00:26 → N.EDINP 06-11 00:26 → N.5E 06-11 13:52
PROVIDERS: ADMIT Internal Medicine; ATTEND Internal Medicine